=== PATIENT | male | born 1970 | race Caucasian/White ===

== ENCOUNTER → 2021-05-07 | Outpatient (CLI) | payer OTHER ==
[~2021-05-07] MED LIST: HYDACE5 PO; LISI20 PO; OMEP20ER PO
== END ==
LOC: LAB 10:19 → LAB SHORT 10:19
DX: D48.5 Neoplasm of uncertain behavior of skin (principal)
CPT/HCPCS: 87070; 87205

== ENCOUNTER → 2021-05-07 | Outpatient (CLI) | payer OTHER | LOC: LAB SHORT 14:10 → LAB 14:10 | DX: D48.5 Neoplasm of uncertain behavior of skin (principal) | CPT/HCPCS: 88312 ==

== ENCOUNTER 2021-11-03 12:52 | Day surgery (SDC) | payer OTHER ==
[~2021-11-03] VITALS: Ht 180.3 cm; Wt 143.4 kg
[2021-11-03] MEDS ORDERED: Vitamin D1000 UNI1 (13:22)
[2021-11-03] MEDS ORDERED: ZOCOR20 MG (13:23)
[2021-11-03] MEDS ORDERED: ASPIR 8181 M1 (13:23)
[2021-11-03] MEDS ORDERED: FISH OIL 1,2001 EAC7 (13:23)
== END 2021-11-03 14:10 | disposition home or self-care (01) ==
LOC: ORSCSDS 12:52
PROVIDERS: Student in an Organized Health Care Education/Training Program
PROC: 0DB68ZX Excision of Stomach, Via Natural or Artificial Opening Endoscopic, Diagnostic (ICD-10-PCS; principal; 2021-11-03 15:45)
PROC: 0DB58ZX Excision of Esophagus, Via Natural or Artificial Opening Endoscopic, Diagnostic (ICD-10-PCS; principal; 2021-11-03 15:45)
DX: K21.9 Gastro-esophageal reflux disease without esophagitis (principal); K31.7 Polyp of stomach and duodenum; I10 Essential (primary) hypertension; E78.5 Hyperlipidemia, unspecified; E11.9 Type 2 diabetes mellitus without complications; E66.01 Morbid (severe) obesity due to excess calories; Z68.41 Body mass index [BMI] 40.0-44.9, adult; Z79.82 Long term (current) use of aspirin; Z79.84 Long term (current) use of oral hypoglycemic drugs; Z79.899 Other long term (current) drug therapy
CPT/HCPCS: 82947; 88305; 88342; J0330; J0461; J2405; J2704; J7120

== ENCOUNTER → 2022-02-12 | Outpatient (CLI) | payer OTHER ==
[~2022-02-12] MED LIST changes: +ASPIR 8181 M1; +FISH OIL 1,2001 EAC7; +Vitamin D1000 UNI1; +ZOCOR20 MG
== END ==
LOC: LAB 07:14 → LAB SHORT 07:14 → PLD 07:14
DX: D48.5 Neoplasm of uncertain behavior of skin (principal)
CPT/HCPCS: 88312